=== PATIENT | female | born 1970 | race Caucasian/White ===

== ENCOUNTER → 2019-10-26 15:07 | Outpatient (CLI) | payer OTHER, SELFPAY ==
--- NOTE | ~2019-10-26 | MM_ITS ---
EXAMINATION: MM screening jose BI w radha HISTORY: Screening mammogram TECHNIQUE: Craniocaudal and mediolateral oblique 3-D tomosynthesis images were obtained and synthetic 2-D images were generated. CAD analysis was submitted and interpreted. COMPARISON: 07/27/2018 diagnostic left digital mammogram 07/19/2018 bilateral digital screening mammogram 07/08/2017, 06/27/2016 bilateral digital screening mammogram examinations BREAST PARENCHYMAL COMPOSITION: The breasts are heterogeneously dense, which may obscure small masses . FINDINGS: There is no evidence of suspicious mass, calcification, or architectural distortion to sugg est malignancy in either breast. There has been no suspicious interval change. IMPRESSION: 1. No mammographic evidence of malignancy. 2. Recommend routine screening mammography in one year. BI-RADS Category 1: Negative Reviewed, dictated and finalized at location A.
== END ==
PROVIDERS: PCP Physician Assistant; Visit Provider Nurse Practitioner
DX: Z12.31 Encounter for screening mammogram for malignant neoplasm of breast (principal)
CPT/HCPCS: 77063; 77067

== ENCOUNTER → 2020-12-10 14:56 | Outpatient (CLI) | payer OTHER, SELFPAY ==
--- NOTE | ~2020-12-10 | MM_ITS ---
EXAMINATION: MM screening jose BI w radha HISTORY: Screening TECHNIQUE: Craniocaudal and mediolateral oblique 3-D tomosynthesis images were obtained and synthetic 2-D images were generated. CAD analysis was submitted and interpreted. COMPARISON: Comparison to multiple prior studies sequentially, with oldest reviewed study dated 06/25. BREAST PARENCHYMAL COMPOSITION: There are scattered areas of fibroglandular density. FINDINGS: There is no evidence of suspicious mass, calcification, or architectural distortion to sugg est malignancy in either breast. There has been no suspicious interval change. IMPRESSION: 1. No mammographic evidence of malignancy. 2. Recommend routine screening mammography in one year. BI-RADS Category 1: Negative Reviewed, dictated and finalized at location A.
== END ==
PROVIDERS: PCP Physician Assistant; Visit Provider Nurse Practitioner
DX: Z12.31 Encounter for screening mammogram for malignant neoplasm of breast (principal)
CPT/HCPCS: 77063; 77067

== ENCOUNTER 2021-01-10 00:11 | Day surgery (SDC) | payer OTHER, SELFPAY ==
[2020-12-25 15:37] VITALS: BMI 31.0
[2021-01-10 06:25] VITALS: BMI 31.8
[2021-01-10 06:27] VITALS: BP 134/68; PULSE 98; RESP 20; TEMP 36.9; O2SAT 100
[2021-01-10] MEDS: LACTATED RINGERS 1,000 ML 150 ML IV CONT (06:32)
--- NOTE | 2021-01-10 06:59 | P.PNAN_ITS ---
Anes - Initial Pre Proc Eval Procedure: Operation Date: 01/10/21 07:30 Proposed Procedures p Screening Colonoscopy - Codey Talley MD Date/Time: 01/10/21 06:59 Surgeon: Codey Talley MD Pre Op Diagnosis: neoplasm screening Patient Data Age: 50 Gender: F Height: 1.57 m Weight: 78.9 kg Last Vital Signs Temp 36.9 C 01/10/21 06:27 Pulse 98 01/10/21 06:27 Resp 20 01/10/21 06:27 BP 134/68 01/10/21 06:27 Pulse Ox 100 01/10/21 06:27 Allergies Allergy/AdvReac Type Severity Reaction Status Date / Time Sulfa (Sulfonamide Allergy Severe Anaphylaxis Verified 01/10/21 06:24 Antibiotics) Home Medications Medication Instructions Recorded Confirmed Type cholecalciferol (vitamin D3) 50 mcg PO DAILY 12/25/20 12/25/20 History [Vitamin D3] cyanocobalamin (vitamin B-12) 500 mcg PO DAILY 12/25/20 12/25/20 History [Vitamin B-12] levothyroxine [Synthroid] 50 mcg PO DAILY 12/25/20 12/25/20 History minocycline 100 mg PO BID PRN 12/25/20 12/25/20 History norethindrone-e.estradiol-iron 1 tablet PO DAILY 12/25/20 12/25/20 History [Blisovi Fe 1.5/30 (28)] Patient hx anesthesia problems: none Family hx anesthesia problems: none Results Review: All pre-operative results and documents have been reviewed as part of the pre-operative evaluation. [facility] Past Medical History Medical History (Updated 01/10/21 @ 06:59 by Owen Radford MD) Hypothyroidism Obesity Social History Social History Smoking status: Never smoker Alcohol intake: former Substance use: never Substance use type: does not use Living arrangements: with family Spiritual care concerns: No Anes - Eval Final PreProcedure Day of Procedure 01/10/21 06:59 Patient weight: obese Heart: regular rate and rhythm Lungs: clear to auscultation Airway: Mallampati scale class 1 Neurological: alert and oriented Last oral intake: >/= 8 hours ASA classification: II Emergent: no Anesthetic plan: proceed Anesthesia type and monitoring: general GIVS and standard monitoring Results Review: All pre-operative results and documents have been reviewed as part of the pre-operative evaluation. Informed Consent: The patient's anesthetic plan and its attendant risks and benefits were discussed with the patient/family/POA. Questions were solicited and answers provided to the satisfaction of the patient/family/POA.
--- NOTE | 2021-01-10 07:23 | WPDGICN ---
Assessment and Plan Assessment and plan (1) Encounter for screening colonoscopy: Code(s): Z12.11 - Encounter for screening for malignant neoplasm of colon Status: Acute Assessment and Plan: Patient presents for screening colonoscopy. She appears to be at average risk for colon polyps. GI Consult Note Consult date/time: 01/10/21 07:23 HPI: Nova Kat is a 50 year old female Presents for screening colonoscopy. Patient reports that her current weight appetite bowel movements are normal. She denies abdominal pain. She has had no bleeding. Family history is noncontributory. Review of Systems Review of Systems: All systems reviewed & are unremarkable except as noted in HPI and below PMFSH Past Medical History Medical History (Updated 01/10/21 @ 07:24 by Codey Talley MD) Hypothyroidism Obesity Social History Social History Smoking status: Never smoker Alcohol intake: former Substance use: never Substance use type: does not use Living arrangements: with family Spiritual care concerns: No Meds Home Medications and Allergies Home Medications Medication Instructions Recorded Confirmed Type cholecalciferol (vitamin D3) 50 mcg PO DAILY 12/25/20 12/25/20 History [Vitamin D3] cyanocobalamin (vitamin B-12) 500 mcg PO DAILY 12/25/20 12/25/20 History [Vitamin B-12] levothyroxine [Synthroid] 50 mcg PO DAILY 12/25/20 12/25/20 History minocycline 100 mg PO BID PRN 12/25/20 12/25/20 History norethindrone-e.estradiol-iron 1 tablet PO DAILY 12/25/20 12/25/20 History [Blisovi Fe 1.5/30 (28)] Allergies Allergy/AdvReac Type Severity Reaction Status Date / Time Sulfa (Sulfonamide Allergy Severe Anaphylaxis Verified 01/10/21 06:24 Antibiotics) Vital Signs Vital Signs - 24 hr 01/10/21 06:27 Temperature 98.5 F Pulse Rate 98 Respiratory Rate 20 Blood Pressure 134/68 Pulse Oximetry 100 Exam Narrative: Physical exam reveals patient to be alert. Vital signs stable. HEENT exam is unremarkable. Patient is anicteric. Lungs are clear to auscultation and percussion. Heart is without murmur or extra sounds. Abdominal exam bowel sounds are present soft nontender with no organomegaly. Digital external rectal exam is normal.
[2021-01-10 07:42] VITALS: BP 102/58; PULSE 74; RESP 23; O2SAT 99
[2021-01-10 07:52] VITALS: BP 101/57; PULSE 68; RESP 19; O2SAT 100
[2021-01-10 08:02] VITALS: BP 119/71; PULSE 76; RESP 23; O2SAT 100
== END 2021-01-10 08:09 | disposition home or self-care (01) ==
PROVIDERS: PCP Physician Assistant; Referring Provider Obstetrics & Gynecology Gynecology; Visit Provider Internal Medicine Gastroenterology
PROC: 0DJD8ZZ Inspection of Lower Intestinal Tract, Via Natural or Artificial Opening Endoscopic (ICD-10-PCS; CPT 45378; principal; 2021-01-10 07:30)
DX: Z12.11 Encounter for screening for malignant neoplasm of colon (principal); K64.8 Other hemorrhoids; E03.9 Hypothyroidism, unspecified; E66.9 Obesity, unspecified; Z68.31 Body mass index [BMI] 31.0-31.9, adult
CPT/HCPCS: 45378; J2704; J7120

== ENCOUNTER → 2022-03-04 14:42 | Outpatient (CLI) | payer OTHER, SELFPAY ==
--- NOTE | ~2022-03-04 | MM_ITS ---
EXAMINATION: MM screening jose BI w radha HISTORY: Screening mammogram TECHNIQUE: Craniocaudal and mediolateral oblique 3-D tomosynthesis images were obtained and synthetic 2-D images were generated. CAD analysis was submitted and interpreted. COMPARISON: 12/10/2020, 10/26/2019 bilateral mammogram examinations 07/27/2018 diagnostic left mammogram BREAST PARENCHYMAL COMPOSITION: There are scattered areas of fibroglandular density. FINDINGS: Minimal benign calcification of the breast. There is no evidence of suspicious mass, calcif ication, or architectural distortion to suggest malignancy in either breast. There has been no suspic ious interval change. IMPRESSION: 1. No mammographic evidence of malignancy. 2. Recommend routine screening mammography in one year. BI-RADS Category 2: Benign finding(s). Reviewed, dictated and finalized at location A. 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
== END ==
PROVIDERS: PCP Physician Assistant; Visit Provider Nurse Practitioner
DX: Z12.31 Encounter for screening mammogram for malignant neoplasm of breast (principal)
CPT/HCPCS: 77063; 77067

== ENCOUNTER 2022-08-28 10:25 | Emergency (ER) | payer OTHER, SELFPAY ==
--- NOTE | ~2022-08-28 | XR_ITS ---
EXAMINATION: XR chest 2V DATE: 08/28/2022 11:18 INDICATION: Chest pain. TECHNIQUE: Frontal and lateral views of the chest were obtained. COMPARISON: None. FINDINGS: The chest demonstrates clear lungs without pneumonia, pleural effusion, or pneumothorax. Th e heart size is normal. IMPRESSION: 1. No acute cardiopulmonary disease. Reviewed, dictated and finalized at location A.
[2022-08-28 10:35] VITALS: BP 165/73; PULSE 105; RESP 18; TEMP 36.6; O2SAT 100
--- NOTE | 2022-08-28 10:40 | ECG_ITS ---
Measurements Intervals [place] Rate: 77 P: 56 [place]: 151 QRS: -1 QRSD: 98 T: 30 QT: 338 QTc: 382 Interpretive Statements SINUS RHYTHM INCOMPLETE RIGHT BUNDLE BRANCH BLOCK BORDERLINE R WAVE PROGRESSION, ANTERIOR LEADS BORDERLINE ECG NO PREVIOUS ECG AVAILABLE FOR COMPARISON Electronically Signed On 08-28-2022 11:06:18 CDT by Cali Monroe D.O.
[2022-08-28 11:01] LABS: Basophils Absolute Auto 0.1 K/mm3 (0.0-0.1); Basophils Percent Auto 1.1 % (0.2-1.2); Eosinophils Absolute Auto 0.1 K/mm3 (0-0.3); Eosinophils Percent Auto 1.5 % (0-4.4); Hematocrit 43.4 % (37.0-47.0); Immature Granulocyte Absolute 0.03 K/mm3 (0.00-0.031); Immature Granulocyte Percent A 0.4 % (0-0.5); Lymphocytes Absolute Auto 2.72 K/mm3 (0.9-3.2); Lymphocytes Percent Auto 37.2 % (18.3-44.2); Mean Corpuscular HGB Conc 32.3 g/dl (32-36); Mean Corpuscular Hemoglobin 28.2 pg (26-34); Mean Corpuscular Volume 87.5 fl (80-100); Monocytes Absolute Auto 0.5 K/mm3 (0.1-0.6); Monocytes Percent Auto 6.1 % (2.6-8.5); Neutrophils Absolute Auto 3.9 K/mm3 (1.3-6.7); Neutrophils Percent Auto 53.7 % (45.5-73.1); Platelet Count Result 267 k/mm3 (150-375); Red Blood Count 4.96 M/mm3 (4.2-5.4); Red Cell Distribution Width 13.8 % (11.5-14.5); White Blood Count 7.3 K/mm3 (4.5-10.0)
[2022-08-28 11:08] LABS: Alanine Aminotransferase 17 U/L (6-35); Alkaline Phosphatase 64 U/L (38-126); Anion Gap 9 mmol/L (8-16); Aspartate Amino Transferase 22 U/L (14-36); Bilirubin,Total 0.4 mg/dL (0.2-1.3); Blood Urea Nitrogen 11 mg/dL (7-17); Calcium 8.6 mg/dL (8.4-10.2); Carbon Dioxide 24 mmol/L (22-30); Chloride 104 mmol/L (98-107); Estimated CRCL calculation 71 ml/min; Estimated Glomerular Filt Rate > 60; Glucose 129 mg/dL (65-110); Lipase 79 U/L (23-300); Potassium 3.8 mmol/L (3.4-5.0); Sodium 137 mmol/L (137-145)
[2022-08-28 11:12] LABS: INR 0.9; Prothrombin Time 12.7 Seconds (11.1-14.7)
[2022-08-28 11:13] LABS: Partial Thromboplastin Time 27.9 SECONDS (22.3-36.8)
[2022-08-28 11:20] LABS: Troponin I < 0.012 ng/mL (0.000-0.034)
[2022-08-28 11:36] VITALS: PULSE 98
[2022-08-28 12:00] VITALS: BP 154/73; PULSE 91; RESP 18; O2SAT 100
[2022-08-28] MEDS: SODIUM CHLORIDE 0.9% IV 1,000 ML 999 ML IV CONT (12:35)
[2022-08-28] MEDS: KETOROLAC 30 MG/ML VIAL (*BKC) IV PUSH (12:35)
[2022-08-28 13:00] VITALS: BP 137/79; PULSE 83; RESP 24; O2SAT 100
--- NOTE | 2022-08-28 13:16 | ED.GENADULT ---
HPI - General Adult General Chief complaint: Chest Pain Stated complaint: Left arm pain Time Seen by Provider: 08/28/22 11:55 History of Present Illness HPI narrative: Patient is a 51-year-old female who presents ER with concerns for chest pain. Patient reports yesterday she began having some achiness in her left neck and shoulder. She has had some throbbing in her arm. She feels like she needs to move her arm to make it feel better. No recent increase in activity or injury. She reports that that discomfort today radiated into her left chest. She then felt a little lightheaded and nauseous. She has no exertional chest pain or shortness of breath. There is no pain with deep breath. She cannot find any real aggravating or alleviating factors. She has not tried any pain medication. No family history of heart disease or personal history of heart disease. Related Data Home Medications Medication Instructions Recorded Confirmed cholecalciferol (vitamin D3) 50 50 mcg PO DAILY 12/25/20 12/25/20 mcg (2,000 unit) capsule (Vitamin D3) cyanocobalamin (vitamin B-12) 500 500 mcg PO DAILY 12/25/20 12/25/20 mcg tablet (Vitamin B-12) levothyroxine 50 mcg tablet 50 mcg PO DAILY 12/25/20 12/25/20 (Synthroid) minocycline 100 mg capsule 100 mg PO BID PRN OTHER 12/25/20 12/25/20 norethindrone 1.5 mg-ethinyl 1 tablet PO DAILY 12/25/20 12/25/20 estradiol 30 mcg(21)/iron 75 mg(7) tablet (Blisovi Fe 1.5/30 (28)) Allergies Allergy/AdvReac Type Severity Reaction Status Date / Time Sulfa (Sulfonamide Allergy Severe Anaphylaxis Verified 08/28/22 11:29 Antibiotics) Review of Systems Review of Systems: All systems reviewed & are unremarkable except as noted in HPI and below Constitutional: Constitutional: Denies chills, Denies fatigue and Denies fever(s) ENT: Denies nasal congestion and Denies sore throat Cardiovascular: Cardiovascular: Reports chest pain, Denies rapid heart rate and Reports radiating jaw, neck or arm pain Respiratory: Respiratory: Denies cough, Denies dyspnea and Denies wheezing Gastrointestinal: Gastrointestinal: Denies abdominal pain, Denies nausea and Denies vomiting PMF Past Medical History Medical History (Updated 08/28/22 @ 14:29 by Harshil Mansfield MD) Hypothyroidism Obesity Social History Social History Smoking status: Never smoker Alcohol intake: former Substance use: never Substance use type: does not use Living arrangements: with family Spiritual care concerns: No Exam Narrative: GENERAL: Well-appearing, well-nourished, and in no acute distress. HEAD: Normocephalic, atraumatic. ENT: Mucous membranes moist. Neck: No midline tenderness of the C-spine. Mild paraspinal muscle tenderness on the left side moving into the trapezius musculature. CHEST: Clear to auscultation. No respiratory distress. HEART: Regular rate and rhythm. Normal peripheral pulses. ABDOMEN: Soft, nontender, nondistended. EXTREMITIES: Normal range of motion. No edema. SKIN: Warm, dry, no rash. NEURO: Alert and oriented x3. PSYCH: Normal mood and affect. Course Course Emergency Course: Patient has very atypical discomfort and it seems more muscular in nature. Mild improvement with Toradol. CBC/CMP normal. Troponin negative x2. EKG nonischemic. Normal chest x-ray. Patient felt to be appropriate for discharge home given low heart score. Would recommend follow-up with PCP. Recommend continued anti-inflammatories at home. Vital Signs Vital signs: Vital Signs Temperature 97.8 F 08/28/22 10:35 Pulse Rate 105 H 08/28/22 10:35 Respiratory Rate 18 08/28/22 10:35 Blood Pressure 165/73 H 08/28/22 10:35 Pulse Oximetry 100 08/28/22 10:35 Oxygen Delivery Room Air 08/28/22 10:35 Temperature 97.8 F 08/28/22 10:35 Pulse Rate 83 08/28/22 13:00 Respiratory Rate 24 H 08/28/22 13:00 Blood Pressure 137/79
[2022-08-28 14:09] LABS: Troponin I < 0.012 ng/mL (0.000-0.034)
== END 2022-08-28 14:47 | disposition home or self-care (01) ==
PROVIDERS: Preventive Medicine Aerospace Medicine; Emergency Provider Emergency Medicine; PCP Physician Assistant
DX: R07.89 Other chest pain (principal); M79.18 Myalgia, other site; E03.9 Hypothyroidism, unspecified; E66.9 Obesity, unspecified; Z68.31 Body mass index [BMI] 31.0-31.9, adult
CPT/HCPCS: 36415; 71046; 80053; 83690; 84484; 85025; 85610; 85730; 93005; 96361; 96374; 99284; J1885; J7030

== ENCOUNTER → 2022-09-02 14:39 | Outpatient (CLI) | payer OTHER, SELFPAY ==
--- NOTE | ~2022-09-02 | XR_ITS ---
XR shoulder LT min 2V DATE: 09/02/2022 14:51 INDICATION: Left shoulder pain. No injury. TECHNIQUE: 4 views COMPARISON: None FINDINGS: No fracture or dislocation, periosteal reaction or bone destruction or abnormal soft tissue calcification. IMPRESSION: Negative Reviewed, dictated and finalized at location B. IMPRESSION: Negative
--- NOTE | ~2022-09-02 | XR_ITS ---
XR elbow LT min 3V DATE: 09/02/2022 14:51 INDICATION: Left shoulder pain. No injury. TECHNIQUE: 4 views COMPARISON: None FINDINGS: No fracture or dislocation, periosteal reaction or bone destruction or joint effusion is de tected. IMPRESSION: Negative Reviewed, dictated and finalized at location B. IMPRESSION: Negative
== END ==
PROVIDERS: PCP Physician Assistant; Visit Provider Physician Assistant
DX: M25.522 Pain in left elbow (principal); M25.512 Pain in left shoulder
CPT/HCPCS: 73030; 73080

== ENCOUNTER 2023-05-26 11:06 | Emergency (ER) | payer OTHER, SELFPAY ==
[2023-05-26 11:14] VITALS: BP 134/70; PULSE 94; RESP 16; TEMP 36.6; O2SAT 99
--- NOTE | 2023-05-26 11:18 | ED.SKABFB ---
HPI - Skin/Abscess/Foreign Bdy General Chief complaint: Skin/Abscess/Foreign Body Stated complaint: Rash Time Seen by Provider: 05/26/23 11:18 Source: patient Mode of arrival: ambulatory Limitations: no limitations History of Present Illness HPI narrative: 52-year-old female presented for complaint of painful rash. Reports lesions to left neck and chest and base of skull. Pain is unrelieved with ibuprofen. States she started with a headache a few days prior to rash. Denies lip, tongue, or throat swelling, shortness of breath or wheezing. Denies changes to soap, detergent, lotion, or any other exposures. No one else in the house or any contacts with similar symptoms. Currently taking antibiotics for planned root canal next week. Related Data Home Medications Medication Instructions Recorded Confirmed cholecalciferol (vitamin D3) 50 50 mcg PO DAILY 12/25/20 05/26/23 mcg (2,000 unit) capsule (Vitamin D3) levothyroxine 50 mcg tablet 50 mcg PO DAILY 12/25/20 05/26/23 (Synthroid) minocycline 100 mg capsule 100 mg PO BID 12/25/20 05/26/23 norethindrone 1.5 mg-ethinyl 1 tablet PO DAILY 12/25/20 05/26/23 estradiol 30 mcg(21)/iron 75 mg(7) tablet (Blisovi Fe 1.5/30 (28)) amoxicillin 875 mg-potassium tablet 05/26/23 clavulanate 125 mg tablet Allergies Allergy/AdvReac Type Severity Reaction Status Date / Time Sulfa (Sulfonamide Allergy Severe Anaphylaxis Verified 05/26/23 11:16 Antibiotics) Review of Systems Review of Systems: CONSTITUTIONAL: Denies body aches, fever, chills, or sweats. EYES: Denies visual changes, redness, or discharge. ENT: Denies rhinorrhea, congestion CARDIOVASCULAR: Denies chest pain, palpitations, or edema. RESPIRATORY: Denies cough or dyspnea. GASTROINTESTINAL: Denies abdominal pain, nausea, vomiting, or diarrhea. SKIN: Reports painful rash to chest and neck MUSCULOSKELETAL: Denies back pain, joint pain, or myalgia. NEUROLOGIC: Reports headache PMFSH Past Medical History Medical History Hypothyroidism Family History Family History Father Diabetes mellitus Mother Diabetes mellitus Thyroid condition Social History Social History Smoking status: Never smoker Alcohol intake: former Substance use: never Substance use type: does not use Lack of Transportation: No Lack of Food: Never True Current Housing: I Have Housing Concerned About Future Housing: No Difficulty Paying Gas/Electric Bills: No Difficulty Paying for Meds: No Currently Unemployed: No Education: Bachelor's Degree Difficulty w/ Childcare or Family Care: No Living arrangements: with family Occupation/Education: occupation Gender identity (if verbalized by the patient): Female Sexual Orientation (if Verbalized by the Patient): Straight or Heterosexual Spiritual care concerns: No Comments At time of signature, I have reviewed and agree with nursing past medical, surgical, social and family history unless otherwise noted. Please see nursing chart for further information. There is no relevant family history pertinent to the presenting complaint Exam Narrative: GENERAL: Well-appearing HEAD: Normocephalic, atraumatic. EYES: conjunctivae clear, and EOMI. ENT: Mucous membranes moist. Oropharynx without edema, erythema or lesions. NECK: Supple. No lymphadenopathy CHEST: Clear to auscultation. HEART: Regular rate and rhythm. SKIN: Warm, dry. Clustered vesicles on erythematous base noted from base of skull extending left to the neck and left chest consistent with zoster lesions on dermatome. Tenderness with palpation. No active drainage. NEURO: Alert and oriented x3. HENMT: Face images: 1. Cluster of lesions 2. Clusters of lesions Course Course Emergency Course: Patient is awar
[2023-05-26 11:19] VITALS: BP 134/70; PULSE 94; RESP 16; TEMP 36.6; O2SAT 99
== END 2023-05-26 11:46 | disposition home or self-care (01) ==
PROVIDERS: Emergency Provider Nurse Practitioner Family; PCP Physician Assistant
DX: B02.9 Zoster without complications (principal); E03.9 Hypothyroidism, unspecified
CPT/HCPCS: 99213; G0463

== ENCOUNTER 2024-02-25 13:20 | Outpatient (CLI) | payer OTHER, SELFPAY ==
--- NOTE | ~2024-02-25 | MM_ITS ---
EXAMINATION: MM screening [facility] BI w radha HISTORY: Screening TECHNIQUE: Craniocaudal and mediolateral oblique 3-D tomosynthesis images were obtained and synthetic 2-D images were generated. CAD analysis was submitted and interpreted. COMPARISON: Comparison to multiple prior studies sequentially, with oldest reviewed study dated 07/08. BREAST PARENCHYMAL COMPOSITION: Not dense: There are scattered areas of fibroglandular density. FINDINGS: There is no evidence of suspicious mass, calcification, or architectural distortion to sugg est malignancy in either breast. There has been no suspicious interval change. IMPRESSION: 1. No mammographic evidence of malignancy. 2. Recommend routine screening mammography in one year. BI-RADS Category 1: Negative Reviewed, dictated and finalized at location A. 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
== END 2024-02-25 13:21 | disposition home or self-care (01) ==
LOC: MICIMG 13:24
PROVIDERS: PCP Family Medicine; Visit Provider Nurse Practitioner
DX: Z12.31 Encounter for screening mammogram for malignant neoplasm of breast (principal)
CPT/HCPCS: 77063; 77067

== ENCOUNTER 2024-09-11 09:49 | Outpatient (CLI) | payer OTHER, SELFPAY ==
--- NOTE | ~2024-09-11 | DEXA_ITS ---
Bone Density Report Name: TANA BELTRAN Age: 53 Sex: Female Ethnicity: White Date of : 1970 Indication: postmenopausal; screening for osteoporosis; Referring Provider: DAVID, AMY Study: Bone densitometry was performed. Exam Date: September 11, 2024 Accession number: [id number] Bone Density: Region BMD T-score Z-score Classification AP Spine(L1-L4) 1.025 -0.2 0.8 Normal Femoral Neck (Left) 0.903 0.5 1.5 Normal Total Hip (Left) 1.101 1.3 1.9 Normal Femoral Neck (Right) 0.986 1.2 2.2 Normal Total Hip (Right) 1.178 1.9 2.6 Normal Total Hip Mean 1.140 1.6 2.3 Normal World Health Organization criteria for BMD impression classify patients as: Normal (T-score at or above -1.0), Osteopenia (T-score between -1.0 and -2.5), or Osteoporosis (T-score at or below -2.5). 10-year Fracture Risk: FRAX not reported because: All T-scores for Spine Total, Hip Total, Femoral Neck at or above -1.0 Clinical Information Provided by Patient: Has used the following medications: Vitamin D Patient maximum height was 62.0 Menopause Age: 52 No regular weight bearing exercise Drinks caffeinated beverages Onset of menses at age 13 Number of children 2 Impression: The patient has normal bone mass. Discussion: BONE DENSITY IS ABOVE THE MINIMUM DESIRABLE LEVEL AT ALL SKELETAL SITES TESTED. This patient?s bone mineral density is above the minimum desirable level (T-score -1.0 or better) at all sites measured. The patient should follow a healthful lifestyle (good nutrition with adequate calcium and vitamin D, and appropriate weight-bearing exercise). Follow-Up: Consider repeating this study in 5 years or sooner if there is some new clinical indication. Reported by: STEPHANIE on 09/11/2024 10:29:00 AM. Reviewed, dictated and finalized at location A.
== END 2024-09-11 09:50 | disposition home or self-care (01) ==
LOC: ANHIMG 09:54
PROVIDERS: PCP Family Medicine; Visit Provider Nurse Practitioner
DX: Z13.820 Encounter for screening for osteoporosis (principal); Z78.0 Asymptomatic menopausal state
CPT/HCPCS: 77080